=== PATIENT | male | born 1995 | race Caucasian/White ===

== ENCOUNTER 2018-09-02 14:06 | Emergency (ER) | payer OTHER ==
[2018-09-02] MEDS ORDERED: NS 0.9% 1000 ML** 1,000 ML IV ONE (14:25)
--- NOTE | 2018-09-02 14:25 | UC ---
General HPI - HPI Summary HPI Summary: pT presents to stating approx 30 min ago was weed eating - pt states has been at work since 7am. Pt states developed chest pain, shortness of breath, lightheadedness and paresthesia in ext x 4. Pt states felt like couldn't catch his breath and his hands became sore and cramping. Pt drove self. No sick contact. No h/o similar. No other coworkers with same sx patient denies history of similar. Patient denies a history of substance abuse. Patient is unsure whether there was excessive fumes with related to a. Patient's medications reviewed this visit. - History of Current Complaint Stated Complaint: SOB ARM TINGLE CHEST TIGHT Time Seen by Provider: 09/02/18 14:17 Hx Obtained From: Patient - Allergy/Home Medications Allergies/Adverse Reactions: Allergies Allergy/AdvReac Type Severity Reaction Status Date / Time No Known Allergies Allergy Unverified 02/10/13 10:59 PMH/Surg Hx/FS Hx/Imm Hx Previously Healthy: Yes Psychological History: Depression - Surgical History Surgical History: None - Family History Known Family History: Positive: Non-Contributory - Social History Occupation: Employed Full-time Lives: With Family Alcohol Use: Rare Substance Use Type: None Review of Systems All Other Systems Reviewed And Are Negative: Yes Constitutional: Positive: Fatigue Skin: Positive: Negative Eyes: Positive: Negative Respiratory: Positive: Shortness Of Breath Cardiovascular: Positive: Other - chest heaviness Gastrointestinal: Positive: Negative Genitourinary: Positive: Negative Neurovascular: Positive: Other - paresthesia Musculoskeletal: Positive: Other: - hand cramping Neurological: Positive: Headache, Paresthesia Psychological: Positive: Negative Is Patient Immunocompromised?: No Physical Exam - Summary Physical Exam Summary: Vital Signs Reviewed: Yes A+Ox3, anixous, mildly tachypnea Eyes: Conjunctiva Clear, CONCEPCION. EOM intact and full ENT: Hearing grossly normal TM x 2 clear, mmoist, uvula midline, no exudate, no erythema Neck: Positive: Supple Respiratory: Positive: No respiratory distress, No accessory muscle use + CTA throughout no w/r Cardiovascular: RRR nl s1, s2 no m/r CBT <2 sec no bruits abd soft + BS nt/nd no guarding, no distension Musculoskeletal Exam: HAMM x 4 without difficulty Strength Intact, ROM Intact 5/ 5 grasp Neurological: Positive: Alert, + sensation throughout, ambulatory without difficulty Psychological: Positive: Normal Response To Family Skin: Positive: no rash, no ecchymosis Triage Information Reviewed: Yes Diagnostics - EKG Cardiac Rate: NL Cardiac Rhythm: Sinus: Normal ST Segment: Normal Course/Dx - Course Course Of Treatment: Patient presents to urgent care after suddenly developing chest pain shortness of breath paresthesias lightheadedness while weed whacking today. Patient states he started to breathe fast ketotic get his breath and his hands began to cramp. Upon arrival patient states his hands of a little bit better but still very stiff. Patient without any nausea vomiting. Patient denies any vision changes. Vital signs are stable. She without a focal findings on exam. EKG done with any concerning symptoms. Patient given an IV and fingerstick which was 86. We'll call EMS to transfer EMS. Concerned patient may have had exposure to carbon monoxide is electing for several hours was placed on oxygen. Spoke to CAMILO Dominique in the emergency department is aware patient coming concern. - Diagnoses Provider Diagnosis: Chest pain, Shortness of breath Discharge - Sign-Out/Discharge Documenting (check all that apply): Patient Departure All imaging exams completed and their final reports reviewed: No Studies - Discharge Plan Condition: Good Disposition: TRANS HIGHER LVL OF CARE FAC Referrals: Susan Mckeon MD [Primary Care Provider] - - Billing Disposition and Condition Condition: GOOD Disposition: Trans Higher Lvl of Care Fac
[2018-09-02 14:39] VITALS: BP 130/68
== END 2018-09-02 14:45 | disposition short-term general hospital (02) ==
LOC: UCEAST 14:06
DX: R07.9 Chest pain, unspecified (principal); R06.02 Shortness of breath
CPT/HCPCS: 93005; 99213; G0463

== ENCOUNTER 2018-09-02 15:10 | Emergency (ER) | payer OTHER ==
[2018-09-02 15:36] LABS: ABS Eosinophils 0.1 10^3/ul (0-0.6); ABS Lymphocytes 2.2 10^3/ul (1.0-4.8); ABS Monocytes 0.7 10^3/ul (0-0.8); ABS Neutrophils 4.6 10^3/ul (1.5-7.7); Eosinophil % 1.5 %; Hematocrit 45 % (42-52); Hemoglobin 15.2 g/dL (14.0-18.0); Lymphocyte % 28.8 %; Mean Corpuscular HGB Conc 34 g/dL (31-36); Mean Corpuscular Hemoglobin 30 pg (27-31); Mean Corpuscular Volume 87 fL (80-94); Mean Platelet Volume 7.9 fL (7.4-10.4); Nucleated Red Blood Cells % 0.2; Platelet Count 186 10^3/uL (150-450); Red Blood Count 5.12 10^6 /uL (4.18-5.48); Red Cell Distribution Width 13 % (10-15); White Blood Count 7.7 10^3/uL (3.5-10.8)
[2018-09-02 15:41] LABS: INR 1.09 (0.82-1.09)
[2018-09-02 16:01] LABS: Albumin/Globulin Ratio 1.5 (1-3); Calcium 9.1 mg/dL (8.6-10.3); EGFR African American 115.3 (>60); EGFR Non-African American 95.3 (>60); Globulin 2.6 g/dL (2-4); Potassium 3.4 mmol/L (3.5-5.0); Total Protein 6.6 g/dL (6.4-8.9)
--- NOTE | 2018-09-02 16:47 | ED ---
HPI Cardiac - HPI Summary HPI Summary: Patient is a 22-year-old male with a history of anxiety presenting with acute onset shortness of breath while workiing. Soon following chest pain developed with lightheadedness. He then developed paresthesias in the bilateral upper and lower extremities. Patient states thinking of his shortness of breath, he developed some anxiety with this. He denies any cough or congestion. He denies any fevers, sweats, chills. Denies smoking history, drug or alcohol use. He was sent here from continued care to further evaluate the shortness of breath and chest pain. On arrival into the ED, the patient states he is feeling improved and denies any chest pain. - History of Current Complaint Chief Complaint: EDChestPainROMI Stated Complaint: CHEST PAIN SHORT OF BREATH FROM CC Time Seen by Provider: 09/02/18 15:17 Hx Obtained From: Patient Onset/Duration: Started Hours Ago Timing: Constant Initial Severity: Moderate Current Severity: Moderate Pain Intensity: 0 Pain Scale Used: 0-10 Numeric Chest Pain Location: Left Anterior Chest Pain Radiates: Yes Chest Pain Radiates To:: Arm Character: Tightness Aggravating Factor(s): Nothing Alleviating Factor(s): Nothing Associated Signs and Symptoms: Positive: Chest Pain, Anxiety, Numbness, Tingling - Risk Factors Pulmonary Embolism Risk Factors: Negative Cardiac Risk Factors: Negative Atrial Fibrillation Risk Factors: Negative TAD Risk Factors: Negative Pseudomonas Risk Factors: Negative - Allergy/Home Medications Allergies/Adverse Reactions: Allergies Allergy/AdvReac Type Severity Reaction Status Date / Time No Known Allergies Allergy Unverified 09/02/18 15:30 Home Medications: Home Medications Fluoxetine HCl [Prozac] 1 cap PO DAILY 09/02/18 [History Confirmed 09/02/18] PMH/Surg Hx/FS Hx/Imm Hx Previously Healthy: Yes - Immunization History Hx Pertussis Vaccination: No Immunizations Up to Date: Yes Infectious Disease History: No Infectious Disease History: Denies: Traveled Outside the [place] in Last 30 Days - Family History Known Family History: Positive: Non-Contributory - Social History Occupation: Employed Full-time Lives: With Family Alcohol Use: Rare Hx Substance Use: No Substance Use Type: Reports: None Hx Tobacco Use: No Smoking Status (MU): Never Smoked Tobacco Review of Systems Negative: Fever, Chills, Fatigue, Skin Diaphoresis Positive: Chest Pain. Negative: Palpitations Positive: Shortness Of Breath. Negative: Cough Genitourinary: Negative Positive: no symptoms reported, see HPI Negative: Arthralgia, Myalgia Skin: Negative Neurological: Negative Positive: Anxious All Other Systems Reviewed And Are Negative: Yes Physical Exam Triage Information Reviewed: Yes Vital Signs On Initial Exam: Initial Vitals Temp Pulse Resp BP Pulse Ox 98.7 F 65 16 124/79 100 09/02/18 15:19 09/02/18 15:19 09/02/18 15:19 09/02/18 15:19 09/02/18 15:19 Vital Signs Reviewed: Yes Appearance: Positive: Well-Appearing, Well-Nourished Skin: Positive: Warm, Skin Color Reflects Adequate Perfusion Head/Face: Positive: Normal Head/Face Inspection Eyes: Positive: EOMI, CONCEPCION, Conjunctiva Clear Neck: Positive: Supple, No Lymphadenopathy Respiratory/Lung Sounds: Positive: Clear to Auscultation, Breath Sounds Present Cardiovascular: Positive: RRR, Pulses are Symmetrical in both Upper and Lower Extremities. Negative: Leg Edema Left, Leg Edema Right Musculoskeletal: Positive: Normal, Strength/ROM Intact Neurological: Positive: Speech Normal Psychiatric: Positive: Affect/Mood Appropriate Diagnostics - Vital Signs Vital Signs Temp Pulse Resp BP Pulse Ox 09/02/18 16:00 64 21 100 09/02/18 15:49 64 17 127/86 100 09/02/18 15:20 67 100 09/02/18 15:19 98.7 F 69 16 124/79 100 - Laboratory Lab Results: Lab Results 09/02/18 09/02/18 09/02/18 Range/Units 15:22 15:22 15:22 WBC 7.7 (3.5-10.8) 10^3/uL RBC 5.12 (4.18-5.48) 10^6 /uL Hgb 15.2 (14.0-18.0) g/dL Hct 45 (42-52) % MCV 87 (80-94) fL MCH 30 (27-31) pg MCHC 34 (31-36) g/dL RDW 13 (10-15) % Plt Count 186 (150-450) 10^3/uL MPV 7.9 (7.4-10.4) fL Neut % (Auto) 60.5 % Lymph % (Auto) 28.8 % Metcalfe % (Auto) 8.6 % Eos % (Auto) 1.5 % Baso % (Auto) 0.6 % Absolute Neuts (auto) 4.6 (1.5-7.7) 10^3/ul Absolute Lymphs (auto) 2.2 (1.0-4.8) 10^3/ul Absolute Monos (auto) 0.7 (0-0.8) 10^3/ul Absolute Eos (auto) 0.1 (0-0.6) 10^3/ul Absolute Basos (auto) 0.0 (0-0.2) 10^3/ul Absolute Nucleated RBC 0.0 10^3/ul Nucleated RBC % 0.2 INR (Anticoag Therapy) 1.09 (0.82-1.09) Sodium 139 (135-145) mmol/L Potassium 3.4 L (3.5-5.0) mmol/L Chloride 107 (101-111) mmol/L Carbon Dioxide 26 (22-32) mmol/L Anion Gap 6 (2-11) mmol/L BUN 20 (6-24) mg/dL Creatinine 1.00 (0.67-1.17) mg/dL Est GFR ( Amer) 115.3 (>60) Est GFR (Non-Af Amer) 95.3 (>60) BUN/Creatinine Ratio 20.0 (8-20) Glucose 94 (70-100) mg/dL Calcium 9.1 (8.6-10.3) mg/dL Total Bilirubin 1.00 (0.2-1.0) mg/dL AST 16 (13-39) U/L ALT 11 (7-52) U/L Alkaline Phosphatase 87 (34-104) U/L Troponin I 0.00 (<0.04) ng/mL Total Protein 6.6 (6.4-8.9) g/dL Albumin 4.0 (3.2-5.2) g/dL Globulin 2.6 (2-4) g/dL Albumin/Globulin Ratio 1.5 (1-3) Result Diagrams: 09/02/18 15:22 09/02/18 15:22 Lab Statement: Any lab studies that have been ordered have been reviewed, and results considered in the medical decision making process. Disposition - Course Course Of Treatment: During the course of treatment, the patient is evaluated for shortness of breath and chest pain. He was brought back to room 14 and EKG was performed. This shows a possibility of an acute pericarditis with a normal sinus rhythm. Patient states he is currently asymptomatic. He is denying any chest pain or shortness of breath. He states he no longer has the paresthesias in the bilateral upper or lower extremity's. He denies any cardiac history or family history of such. He does have a family history including personal history of anxiety. Labs obtained which are all WNL including a troponin which was 0.00. As patient is asymptomatic, no medications were given. While EKG shows possibility of acute pericarditis, again patient is asymptomatic and denies any worsening or changing symptoms with recumbent or upright position. Patient will be discharged with shortness of breath and anxiety. He is okay with this plan and discharge. - Differential Dx - Cardiopulmonary Differential Diagnoses - Cardiopulmonary: Other - anxiety, chest pain, SOB, angina, allergies - Diagnoses Provider Diagnoses: Anxiety Discharge - Sign-Out/Discharge Documenting (check all that apply): Patient Departure Patient Received Moderate/Deep Sedation with Procedure: No - Discharge Plan Condition: Stable Disposition: HOME Patient Education Materials: Anxiety (ED) Referrals: Susan Mckeon MD [Primary Care Provider] - Additional Instructions: As discussed, your labs, chest x-ray and EKG today did not show any evidence for concern for cardiac pathology You may have had an anxiety attack which is consistent with your symptoms Please follow up with your PCP regarding any worsening/furthering symptoms - Billing Disposition and Condition Condition: STABLE Disposition: Home
[2018-09-02 17:14] VITALS: BP 125/73
== END 2018-09-02 17:12 | disposition home or self-care (01) ==
LOC: ED 15:10
DX: F41.9 Anxiety disorder, unspecified (principal)
CPT/HCPCS: 36415; 71045; 80053; 84484; 85025; 85610; 93005; 99283